=== PATIENT | female | born 1980 | race Caucasian/White ===

== ENCOUNTER 2017-09-16 11:08 | Emergency (ER) | payer OTHER ==
[2017-09-16] MEDS: SOD CHLORIDE 0.9% 500 ML IV (14:12)
[2017-09-16] MEDS: DIPHENHYDRAMINE 50 MG INJ IV (14:12)
[2017-09-16] MEDS: METOCLOPRAMIDE 10 MG INJ IV (14:12)
== END 2017-09-16 15:28 | disposition home or self-care (01) ==
LOC: FTE 11:08
DX: R51 Headache (principal); I10 Essential (primary) hypertension; F17.210 Nicotine dependence, cigarettes, uncomplicated
CPT/HCPCS: 96374; 96375; 99284-25